=== PATIENT | male | born 2000 | race Caucasian/White ===

== ENCOUNTER 2020-07-13 20:59 | Emergency (ER) | payer OTHER, MEDICAID ==
[~2020-07-13] VITALS: Ht 175.3 cm; Wt 52.2 kg
[2020-07-13] MEDS ORDERED: ULTRAM 50MG TAB50 MG PO (23:11)
[2020-07-13] MEDS ORDERED: IBUPROFEN 800800 MG PO (23:11)
[2020-07-13 23:29] VITALS: BP 128/87
== END 2020-07-13 23:30 | disposition home or self-care (01) ==
LOC: M.ERS 20:59
DX: S62.502A Fracture of unspecified phalanx of left thumb, initial encounter for closed fracture (principal); W22.8XXA Striking against or struck by other objects, initial encounter; Y93.89 Activity, other specified; Y92.89 Other specified places as the place of occurrence of the external cause; Y99.8 Other external cause status

== ENCOUNTER 2020-07-20 16:59 | Emergency (ER) | payer MEDICAID ==
[~2020-07-20] VITALS: Ht 172.7 cm; Wt 68.0 kg
[~2020-07-20 16:59] MED LIST: IBUPROFEN 800800 MG PO; ULTRAM 50MG TAB50 MG PO
[2020-07-20 18:15] VITALS: BP 139/77
== END 2020-07-20 18:17 | disposition home or self-care (01) ==
LOC: M.ERS 16:59
DX: S62.502A Fracture of unspecified phalanx of left thumb, initial encounter for closed fracture (principal); J45.909 Unspecified asthma, uncomplicated; X58.XXXA Exposure to other specified factors, initial encounter; Y93.89 Activity, other specified; Y92.89 Other specified places as the place of occurrence of the external cause; Y99.8 Other external cause status

== ENCOUNTER 2021-01-25 10:18 | Emergency (ER) | payer MEDICAID ==
[~2021-01-25] VITALS: Ht 175.3 cm; Wt 47.6 kg
[2021-01-25] MEDS ORDERED: CEPHALEXIN500 MG PO (11:28)
[2021-01-25] MEDS ORDERED: BACTRIM DS TAB1 EACH PO (11:28)
[2021-01-25] MEDS ORDERED: CENTANY30 GM TOP (11:28)
[2021-01-25 11:42] VITALS: BP 128/80
== END 2021-01-25 11:43 | disposition home or self-care (01) ==
LOC: M.ERS 10:18
DX: S00.83XA Contusion of other part of head, initial encounter (principal); J45.909 Unspecified asthma, uncomplicated; J02.9 Acute pharyngitis, unspecified; F17.210 Nicotine dependence, cigarettes, uncomplicated; Z48.00 Encounter for change or removal of nonsurgical wound dressing; W22.8XXA Striking against or struck by other objects, initial encounter; Y93.89 Activity, other specified; Y92.89 Other specified places as the place of occurrence of the external cause; Y99.8 Other external cause status

== ENCOUNTER 2021-03-01 05:45 | Emergency (ER) | payer MEDICAID ==
[~2021-03-01] VITALS: Ht 175.3 cm; Wt 47.6 kg
[~2021-03-01 05:45] MED LIST changes: +BACTRIM DS TAB1 EACH PO; +CENTANY30 GM TOP; +CEPHALEXIN500 MG PO
[2021-03-01 06:48] LABS: URINE BILIRUBIN NEGATIVE (Negative); URINE BLOOD TRACE (Negative); URINE CLARITY CLEAR; URINE COLOR YELLOW; URINE GLUCOSE-RANDOM NEGATIVE (Negative); URINE KETONES NEGATIVE (Negative); URINE LEUKOCYTES NEGATIVE (Negative); URINE NITRITE NEGATIVE (Negative); URINE PROTEIN NEGATIVE (Negative); URINE SPECIFIC GRAVITY >= 1.030 (1.005-1.030); URINE UROBILINOGEN 0.2 E.U./dl (0.2-1.0)
[2021-03-01 06:54] LABS: AMP/METHAMP Negative (Negative); BARBITURATES Negative (Negative); BENZODIAZEPINES Negative (Negative); COCAINE Negative (Negative); METHADONE Negative (Negative); OPIATES Negative (Negative); PCP Negative (Negative); THC Negative (Negative)
[2021-03-01 07:07] LABS: HEMATOCRIT 43.9 % (42.0-52.0); HEMOGLOBIN 14.7 gm/dL (14.0-18.0); MCH 29.5 pg (26.0-34.0); MCHC 33.5 g/dL (28.0-37.0); MPV 9.8 fl. (7.2-11.1); RBC 4.99 mil/uL (4.50-6.00); RDW-CV 13.1 % (10.5-14.5); WBC 5.5 thou/uL (4.0-11.0)
[2021-03-01 07:32] LABS: ALCOHOL < 10 mg/dL (<10); SALICYLATE < 2.8 mg/dL (2.8-20.0)
[2021-03-01 07:37] LABS: ACETAMINOPHEN < 2 ug/mL (10-30)
[2021-03-01 08:20] LABS: CALCIUM 8.5 mg/dL (8.5-10.1); POTASSIUM 3.7 mmol/L (3.5-5.1)
[2021-03-01 08:25] LABS: ALBUMIN 3.9 g/dL (3.4-5.0); TOTAL BILIRUBIN 0.4 mg/dL (<0.1-1.0); TOTAL PROTEIN 7.3 g/dL (6.4-8.2)
[2021-03-01 17:19] VITALS: BP 99/60
== END 2021-03-01 17:19 ==
LOC: M.ERS 05:45
PROVIDERS: Personal Emergency Response Attendant
DX: S00.83XA Contusion of other part of head, initial encounter (principal); Z20.822 Contact with and (suspected) exposure to COVID-19; J45.909 Unspecified asthma, uncomplicated; F22 Delusional disorders; R45.88 Nonsuicidal self-harm; F17.210 Nicotine dependence, cigarettes, uncomplicated; Z00.8 Encounter for other general examination; Z04.6 Encounter for general psychiatric examination, requested by authority; W22.8XXA Striking against or struck by other objects, initial encounter; Y93.89 Activity, other specified; Y92.89 Other specified places as the place of occurrence of the external cause; Y99.8 Other external cause status